=== PATIENT | male | born 1970 | race Hispanic/Latino ===

== ENCOUNTER 2017-06-29 10:26 | Inpatient (IN) | payer SELFPAY ==
[2017-06-29] MEDS ORDERED: NACL 0.9% 1000 ML 1,000 ML IV ONE ×4 (10:51→21:00)
[2017-06-29] MEDS ORDERED: MORPHINE IV ONE ×2 (10:58→12:27)
[2017-06-29] MEDS ORDERED: ZOFRAN IV ONE (10:58)
--- NOTE | 2017-06-29 10:59 | Emergency Department Report ---
ED Abdominal Pain HPI - General Chief Complaint: Abdominal Pain Stated Complaint: ABD PAIN X 2 DAY Time Seen by Provider: 06/29/17 10:50 Source: patient, EMS Mode of arrival: Ambulatory Limitations: No Limitations - History of Present Illness Initial Comments: History of bipolar patient is on a 1013 form for si, takes psych meds gabapentin , seroquel, xanax as well as protonix, ultram, from [facility] here with increasing abdominal pain for 2 days patient states he had a bowel obstruction in the past with a history of pancreatitis. She is stating increasing abdominal pain and distention with nausea vomiting. The emesis seems feculent. He denies any ability to have bowel movement for 4 days for eval worsening abd pain MD Complaint: abdominal pain -: Gradual Location: diffuse, epigastric Radiation: epigastric, back Migration to: no migration Quality: cramping Consistency: constant Improves With: medication Associated Symptoms: nausea, vomiting. denies: hematemesis, hematochezia, melena, hematuria, anorexia, syncope - Related Data Allergies Allergy/AdvReac Type Severity Reaction Status Date / Time aspirin Allergy Unknown Verified 06/29/17 10:37 ED Review of Systems ROS: Stated complaint: ABD PAIN X 2 DAY Other details as noted in HPI Comment: All other systems reviewed and negative Constitutional: denies: diaphoresis, fever, malaise, weakness Cardiovascular: denies: chest pain, palpitations, dyspnea on exertion, orthopnea , edema, syncope, paroxysmal nocturnal dyspnea Gastrointestinal: abdominal pain, nausea, vomiting. denies: hematemesis, hematochezia Musculoskeletal: denies: joint swelling, arthralgia, myalgia Neurological: denies: headache, weakness, numbness, paresthesias, confusion ED Past Medical Hx - Past Medical History Previous Medical History?: Yes Hx Hypertension: Yes Hx Psychiatric Treatment: Yes (bipolar) Additional medical history: pancreatitis - Social History Smoking Status: Never Smoker Substance Use Type: None ED Physical Exam - General Limitations: No Limitations General appearance: alert, anxious, in distress - Head Head exam: Present: atraumatic, normocephalic - Eye Eye exam: Present: PERRL, EOMI - ENT ENT exam: Present: normal exam - Neck Neck exam: Present: normal inspection. Absent: tenderness, meningismus - Respiratory Respiratory exam: Present: normal lung sounds bilaterally. Absent: respiratory distress, wheezes, rales, rhonchi, stridor, chest wall tenderness, accessory muscle use, decreased breath sounds, prolonged expiratory - Cardiovascular Cardiovascular Exam: Present: regular rate, normal rhythm, normal heart sounds - GI/Abdominal GI/Abdominal exam: Present: soft, tenderness. Absent: rigid, mass, pulsatile mass - Extremities Exam Extremities exam: Present: normal inspection. Absent: pedal edema, joint swelling, calf tenderness - Skin Skin exam: Absent: cyanosis, diaphoretic, erythema, urticaria, vesicles ED Course Vital Signs 06/29/17 06/29/17 06/29/17 10:49 11:00 11:30 Temperature 98.2 F Pulse Rate 75 74 73 Respiratory 15 13 14 Rate Blood Pressure 116/68 116/64 Blood Pressure 129/86 [Left] O2 Sat by Pulse 94 95 Oximetry 06/29/17 06/29/17 06/29/17 12:18 12:30 13:00 Temperature Pulse Rate 74 75 69 Respiratory 15 14 13 Rate Blood Pressure 116/64 116/64 116/64 Blood Pressure [Left] O2 Sat by Pulse Oximetry 06/29/17 06/29/17 06/29/17 14:00 14:30 15:00 Temperature Pulse Rate 65 64 Respiratory 17 21 Rate Blood Pressure 116/64 118/69 114/61 Blood Pressure [Left] O2 Sat by Pulse 96 95 92 Oximetry 06/29/17 06/29/17 15:30 15:41 Temperature Pulse Rate Respiratory 13 Rate Blood Pressure 106/60 Blood Pressure [Left] O2 Sat by Pulse 92 97 Oximetry - Reevaluation(s) Reevaluation #1: 06/29/17 16:25 Patient was given IV fluids and pain control laboratory studies and CT were ordered ED Medical Decision Making - Lab Data Result diagrams: 06/29/17 10:52 06/29/17 10:52 - Radiology Data Radiology results: report reviewed - Medical Decision Making Patient received several doses of morphine was also requesting Dilaudid he was improved in the ED w/ this, laboratory studies show nl lipase, elev alk phos. nl bili, , ct shows some mesenteric edema with intra-abdominal and pelvic adenopathy with possible compression on the portal vein case was discussed with Dr. Augustin who is race relations professor for hospitalist service who will further evaluate the patient for further managementand admission Critical care attestation.: If time is entered above; I have spent that time in minutes in the direct care of this critically ill patient, excluding procedure time. ED Disposition Clinical Impression: Abdominal pain Disposition: DC-09 OP ADMIT IP TO THIS HOSP Is pt being admited?: Yes Condition: Stable Referrals: PRIMARY CARE, [Primary Care Provider] - 3-5 Days Time of Disposition: 17:25
[2017-06-29 11:12] LABS: Basophils % (Auto) 0.3 % (0.0-1.8); Eosinophils # (Auto) 0.1 K/mm3 (0.0-0.4); Eosinophils % (Auto) 2.3 % (0.0-4.3); Hematocrit 34.2 % (35.5-45.6); Hemoglobin 11.1 gm/dl (11.8-15.2); Lymphocytes # (Auto) 1.2 K/mm3 (1.2-5.4); Lymphocytes % (Auto) 30.7 % (13.4-35.0); Mean Corpuscular HGB Conc 32 % (32-34); Mean Corpuscular Volume 80 fl (84-94); Monocytes # (Auto) 0.6 K/mm3 (0.0-0.8); Monocytes % (Auto) 15.3 % (0.0-7.3); Platelet Count 120 K/mm3 (140-440); Red Blood Count 4.28 M/mm3 (3.65-5.03); Red Cell Distribution Width 16.2 % (13.2-15.2)
[2017-06-29 11:13] LABS: Mean Corpuscular Hemoglobin 26 pg (28-32)
[2017-06-29 11:36] LABS: Alanine Aminotransferase 54 units/L (7-56); Albumin 3.6 g/dL (3.9-5); BUN/Creatinine Ratio 18; Blood Urea Nitrogen 16 mg/dL (9-20); Calcium 8.7 mg/dL (8.4-10.2); Hemolysis Index 58
--- NOTE | 2017-06-29 12:38 | Cat Scan Report ---
CT ABDOMEN PELVIS WITH CONTRAST: HISTORY: abdominal pain. COMPARISON: none. TECHNIQUE: Helical CT in 1.25mm intervals following IV contrast. Sagittal and coronal reconstructions. FINDINGS: There appears to be well-defined mesenteric edema near the base of the mesentery and pancreas. The mesentery appears to be tethered to the anterior surface of the body of the pancreas. Some images suggest mild desmoplastic reaction. There are multiple borderline to mildly enlarged lymph nodes in the montse hepatis, pancreatic bed and base of the mesentery measuring up to 2.9 x 1.7 cm. No discrete pancreatic mass or calcifications are identified. The gallbladder has been surgically removed. The liver is unremarkable. 1.9 cm cavernous angioma in the inferior tip of the liver is noted. There is mild to moderate splenomegaly measuring 17 cm. No ascites or varicosities. There does appear to be mild engorgement of the superior mesenteric vein. The portal vein is not confidently identified throughout its course and may be stenotic particularly near the splenic confluence. The kidneys, ureters, bladder, adrenal glands and aorta are unremarkable. The bowel loops are within normal limits given no oral contrast was administered. Normal appendix. No evidence for ascites or free air. The visualized bony structures are intact. The lung bases are well aerated. Normal heart size. IMPRESSION: Nonspecific edema at the base of the mesentery and near the pancreatic bed. There are also mildly enlarged lymph nodes in this area and possible compression or stenosis of the portal vein. The etiology of this is unclear. Consider correlation with pancreatic enzymes. Mild adenopathy in the montse hepatis, peripancreatic chains and base of the mesentery which could indicate a neoplastic process.
[2017-06-29] MEDS ORDERED: DILAUDID IV ONE (14:34)
[2017-06-29 17:50] LABS: Bilirubin,Urine NEG (Negative); Blood,Urine NEG (Negative); Color,Urine Straw (Yellow); Urobilinogen,Urine < 2.0 mg/dL (<2.0); WBC,Urine < 1.0 /HPF (0.0-6.0)
[2017-06-29 17:55] LABS: Protein,Urine Color Interference mg/dL (Negative)
[2017-06-29] MEDS ORDERED: NACL 0.9% 1000 ML 1,000 ML ONE (18:36)
[2017-06-29] MEDS ORDERED: TYLENOL PO PRN (18:58)
[2017-06-29] MEDS ORDERED: SODIUM CHLORIDE FLUSH SYRINGE 10 ML IV PRN (18:58)
[2017-06-29] MEDS ORDERED: PROVENTIL IH PRN (18:58)
[2017-06-29] MEDS ORDERED: ZOFRAN IV PRN (18:58)
--- NOTE | 2017-06-29 18:58 | History and Physical Report ---
History of Present Illness Chief complaint: My stomach hurts, and they told me that i needed surgery for the blockage History of present illness: 46 YO Male with MO, Bipolar, Chronic Pancreatitis, HTN presents to ED for evaluation. Pt currently at [place] on 1013 for suicide ideation. Pt states that he has experienced abdominal pain for the past 2 days with worsening symptoms over the past 12 hours. Pt states tht his last bowel movement was 4 days ago. Pt states that pain is 7/10, diffuse, starts in the epigastric area and radiates to his back. Pt also complains of feculent emesis. Pt denies fever, CP , Palpitations, Syncope, BRBPR, rash, productive cough, ingestion of food/water from new or different sources. 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 Surgery consulted in ED. Pt admitted to medical floor. Past History Past Medical History: hypertension, other (bipolar) Past Surgical History: No surgical history, Other (reviewed) Social history: single. denies: smoking, alcohol abuse, prescription drug abuse Family history: no significant family history (reviewed) Medications and Allergies Allergies Allergy/AdvReac Type Severity Reaction Status Date / Time aspirin Allergy Unknown Verified 06/29/17 10:37 Active Meds: Active Medications Sodium Chloride (Nacl 0.9% 1000 Ml) 1,000 mls @ 999 mls/hr IV BOLUS ONE Stop: 06/29/17 19:38 Last Admin: 06/29/17 18:44 Dose: 999 mls/hr Sodium Chloride (Nacl 0.9% 1000 Ml) 1,000 mls @ 999 mls/hr IV BOLUS ONE Stop: 06/29/17 21:00 Sodium Chloride (Nacl 0.9% 1000 Ml) 1,000 mls @ 999 mls/hr IV BOLUS ONE Stop: 06/29/17 22:00 Review of Systems Constitutional: no weight loss, no weight gain, no fever, no chills Ears, nose, mouth and throat: no ear pain, no ear discharge, no tinnitis, no decreased hearing, no nose pain, no nasal congestion Cardiovascular: no chest pain, no orthopnea, no palpitations, no rapid/ irregular heart beat, no edema, no syncope Respiratory: no cough, no cough with sputum, no excessive sputum, no hemoptysis , no shortness of breath Gastrointestinal: abdominal pain, nausea, vomiting, change in bowel habits, no hematemesis, no coffee ground emesis, no BRBPR, no melena Genitourinary Male: no hematuria, no flank pain, no discharge, no urinary frequency, no urinary hesitancy Rectal: no pain, no incontinence, no bleeding Musculoskeletal: no neck stiffness, no neck pain, no shooting arm pain, no arm numbness/tingling, no low back pain, no shooting leg pain, no leg numbness/ tingling Integumentary: no rash, no pruritis, no redness, no sores, no wounds, no jaundice Neurological: no head injury, no transient paralysis, no paralysis, no weakness , no parathesias, no numbness, no tingling, no seizures Psychiatric: no anxiety, no memory loss, no change in sleep habits, no sleep disturbances, no insomnia, no hypersomnia, no change in appetite Endocrine: no cold intolerance, no heat intolerance, no polyphagia, no excessive thirst, no polydipsia, no polyuria, no nocturia Hematologic/Lymphatic: no easy bruising, no easy bleeding, no lymphadenopathy, no lymphedema Allergic/Immunologic: no urticaria, no allergic rhinitis, no wheezing Exam - Constitutional Vitals: Temp Pulse Resp BP Pulse Ox 98.2 F 64 13 102/61 99 06/29/17 11:00 06/29/17 15:00 06/29/17 15:30 06/29/17 18:37 06/29/17 18:33 General appearance: Present: mild distress - EENT Eyes: Present: PERRL ENT: hearing intact, clear oral mucosa - Neck Neck: Present: supple, normal ROM - Respiratory Respiratory effort: normal Respiratory: bilateral: CTA - Cardiovascular Heart Sounds: Present: S1 & S2. Absent: rub, click - Extremities Extremities: pulses symmetrical, No edema Peripheral Pulses: within normal limits - Abdominal General gastrointestinal: Present: soft, tender, non-distended, normal bowel sounds. Absent: hepatomegaly, splenomegaly, mass, hernia Male genitourinary: Present: normal - Integumentary Integumentary: Present: clear, warm, dry - Musculoskeletal Musculoskeletal: gait normal, strength equal bilaterally - Psychiatric Psychiatric: appropriate mood/affect, intact judgment & insight - Neurologic Neurologic: CNII-XII intact, moves all extremities Results - Labs CBC & Chem 7: 06/29/17 10:52 06/29/17 10:52 Labs: Abnormal lab results 06/29/17 06/29/17 Range/Units 10:52 10:52 WBC 4.0 L (4.5-11.0) K/mm3 Hgb 11.1 L (11.8-15.2) gm/dl Hct 34.2 L (35.5-45.6) % MCV 80 L (84-94) fl MCH 26 L (28-32) pg RDW 16.2 H (13.2-15.2) % Plt Count 120 L (140-440) K/mm3 [place] % (Auto) 15.3 H (0.0-7.3) % Glucose 137 H (75-100) mg/dL AST 43 H (5-40) units/L Alkaline Phosphatase 344 H (35-129) units/L Albumin 3.6 L (3.9-5) g/dL Assessment and Plan - Patient Problems (1) Mesenteric ischemia Current Visit: Yes Status: Acute Plan to address problem: CT Abdomen Pelvis, Surgery team consulted, serial abdominal exam, lactic acid level, CBC, CMP, IVF resuscitation therapy (2) Bipolar 1 disorder Current Visit: Yes Status: Acute Plan to address problem: Psych consulted, [address], resume prehospital medication. (3) Suicide ideation Current Visit: Yes Status: Acute Plan to address problem: 1:1 sitter, psych consulted, (4) Abdominal pain Current Visit: Yes Status: Acute Qualifiers: Abdominal location: generalized Qualified Code(s): R10.84 - Generalized abdominal pain Plan to address problem: CT abdomen pelvis, serial lactic acid, serial abdominal exam. (5) DVT prophylaxis Current Visit: Yes Status: Acute
[2017-06-29] MEDS: SODIUM CHLORIDE FLUSH SYRINGE 10 ML IV SCH (22:00)
[2017-06-30] MEDS: MORPHINE IV PRN ×4 (00:01→12:23)
--- NOTE | 2017-06-30 06:52 | Progress Note ---
Assessment and Plan Assessment and plan: 46 YO Male with MO, Bipolar, Chronic Pancreatitis, HTN presents to ED for evaluation. Pt currently at [place] on 1013 for suicide ideation. Pt states that he has experienced abdominal pain for the past 2 days with worsening symptoms over the past 12 hours. Pt states tht his last bowel movement was 4 days ago. Pt states that pain is 7/10, diffuse, starts in the epigastric area and radiates to his back. Pt also complains of feculent emesis. Pt denies fever, CP , Palpitations, Syncope, BRBPR, rash, productive cough, ingestion of food/water from new or different sources. 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 Surgery consulted in ED. Pt admitted to medical floor. (1) Mesenteric edema Current Visit: Yes Status: Acute Plan to address problem: CT Abdomen Pelvis, Surgery team consulted, serial abdominal exam, lactic acid level, CBC, CMP, IVF resuscitation therapy (2) Bipolar 1 disorder Current Visit: Yes Status: Acute Plan to address problem: Psych consulted, [address], resume prehospital medication. (3) Suicide ideation Current Visit: Yes Status: Acute Plan to address problem: 1:1 sitter, psych consulted, (4) Abdominal pain Current Visit: Yes Status: Acute Qualifiers: Abdominal location: generalized Qualified Code(s): R10.84 - Generalized abdominal pain Plan to address problem: CT abdomen pelvis, serial lactic acid, serial abdominal exam. (5) DVT prophylaxis Current Visit: Yes Status: Acute Hospitalist Physical - Constitutional Vitals: Temp Pulse Resp BP Pulse Ox 98.3 F 63 18 128/79 98 06/29/17 21:31 06/29/17 21:31 06/29/17 21:31 06/29/17 21:31 06/29/17 22:05 General appearance: Present: mild distress Results - Labs CBC & Chem 7: 06/29/17 10:52 06/29/17 10:52 Labs: Laboratory Last Values WBC 4.0 K/mm3 (4.5-11.0) L 06/29/17 10:52 RBC 4.28 M/mm3 (3.65-5.03) 06/29/17 10:52 Hgb 11.1 gm/dl (11.8-15.2) L 06/29/17 10:52 Hct 34.2 % (35.5-45.6) L 06/29/17 10:52 MCV 80 fl (84-94) L 06/29/17 10:52 MCH 26 pg (28-32) L 06/29/17 10:52 MCHC 32 % (32-34) 06/29/17 10:52 RDW 16.2 % (13.2-15.2) H 06/29/17 10:52 Plt Count 120 K/mm3 (140-440) L 06/29/17 10:52 Lymph % (Auto) 30.7 % (13.4-35.0) 06/29/17 10:52 [place] % (Auto) 15.3 % (0.0-7.3) H 06/29/17 10:52 Eos % (Auto) 2.3 % (0.0-4.3) 06/29/17 10:52 Baso % (Auto) 0.3 % (0.0-1.8) 06/29/17 10:52 Lymph # 1.2 K/mm3 (1.2-5.4) 06/29/17 10:52 Alexander # 0.6 K/mm3 (0.0-0.8) 06/29/17 10:52 Eos # 0.1 K/mm3 (0.0-0.4) 06/29/17 10:52 Baso # 0.0 K/mm3 (0.0-0.1) 06/29/17 10:52 Seg Neutrophils % 51.4 % (40.0-70.0) 06/29/17 10:52 Seg Neutrophils # 2.0 K/mm3 (1.8-7.7) 06/29/17 10:52 Sodium 137 mmol/L (137-145) 06/29/17 10:52 Potassium 4.5 mmol/L (3.6-5.0) 06/29/17 10:52 Chloride 99.0 mmol/L (98-107) 06/29/17 10:52 Carbon Dioxide 27 mmol/L (22-30) 06/29/17 10:52 Anion Gap 16 mmol/L 06/29/17 10:52 BUN 16 mg/dL (9-20) 06/29/17 10:52 Creatinine 0.9 mg/dL (0.8-1.5) 06/29/17 10:52 Estimated GFR > 60 ml/min 06/29/17 10:52 BUN/Creatinine Ratio 18 % 06/29/17 10:52 Glucose 137 mg/dL (75-100) H 06/29/17 10:52 Lactic Acid 0.80 mmol/L (0.7-2.0) 06/29/17 19:14 Calcium 8.7 mg/dL (8.4-10.2) 06/29/17 10:52 Total Bilirubin 0.20 mg/dL (0.1-1.2) 06/29/17 10:52 AST 43 units/L (5-40) H 06/29/17 10:52 ALT 54 units/L (7-56) 06/29/17 10:52 Alkaline Phosphatase 344 units/L (35-129) H 06/29/17 10:52 Total Protein 6.5 g/dL (6.3-8.2) 06/29/17 10:52 Albumin 3.6 g/dL (3.9-5) L 06/29/17 10:52 Albumin/Globulin Ratio 1.2 % 06/29/17 10:52 Lipase 13 units/L (13-60) 06/29/17 10:52 Urine Color Straw (Yellow) 06/29/17 17:40 Urine Turbidity Clear (Clear) 06/29/17 17:40 Urine pH 6.0 (5.0-7.0) 06/29/17 17:40 Ur Specific [place] 1.021 (1.003-1.030) 06/29/17 17:40 Urine Protein Color interference mg/dL (Negative) 06/29/17 17:40 Urine Glucose (UA) Neg mg/dL (Negative) 06/29/17 17:40 Urine Ketones Neg mg/dL (Negative) 06/29/17 17:40 Urine Blood Neg (Negative) 06/29/17 17:40 Urine Nitrite Neg (Negative) 06/29/17 17:40 Urine Bilirubin Neg (Negative) 06/29/17 17:40 Urine Urobilinogen < 2.0 mg/dL (<2.0) 06/29/17 17:40 Ur Leukocyte Esterase Neg (Negative) 06/29/17 17:40 Urine WBC (Auto) < 1.0 /HPF (0.0-6.0) 06/29/17 17:40 Urine RBC (Auto) 1.0 /HPF (0.0-6.0) 06/29/17 17:40
--- NOTE | 2017-06-30 08:47 | XRay Report ---
ABDOMEN, 2 views: History: Abdominal pain. Compared to the CT abdomen pelvis dated 06/29/17. There is no evidence of free air beneath the diaphragms. The gas pattern within the abdomen is unremarkable. There is no evidence of bowel dilatation, significant air-fluid levels, or pathologic calcifications. Organ shadows are unremarkable. IMPRESSION: Unremarkable abdomen x-rays.
[2017-06-30] MEDS: SODIUM CHLORIDE FLUSH SYRINGE 10 ML IV SCH ×2 (09:54→22:02)
--- NOTE | 2017-06-30 11:49 | Cat Scan Report ---
CT ANGIOGRAM ABDOMEN AND PELVIS History: Abdominal pain, mesenteric edema, evaluate for ischemic bowel. Technique: Helical CT following IV contrast. Delayed venous imaging. Sagittal and coronal reformatted images. Rotational MIP images. Findings: The arterial images demonstrate patency of all arterial structures. There are mild partially calcified plaques in the distal aorta with less than 20% stenosis. The celiac axis, SMA, BRUNILDA and bilateral single renal arteries are patent less than 20% stenosis. The bilateral iliac systems are patent with less than 20% stenosis. No aneurysm or dissection. The delayed venous images demonstrate high grade stenosis of the distal portal vein near the splenic confluence. Stenosis in the distal portal vein is estimated at greater than 90%. There does not appear to be complete occlusion or portal vein thrombosis. There are multiple collateral vessels in the montse hepatis consistent with cavernous transformation. The splenic vein and superior mesenteric vein are dilated and tortuous. Gastric varices are also noted. The IVC and iliac veins are widely patent. Please note that there is no portal venous and peripancreatic adenopathy as thought on the CT abdomen pelvis with contrast on 06/29/17. These dilated veins appeared to represent enlarged lymph nodes on a standard CT with contrast. Again, there appears to be scarring or tethering of the mesentery to the pancreatic bed or base of the mesentery which is of uncertain etiology. The descending duodenum also appears to be tethered to the scarring in this area resulting in mild gastric outlet obstruction. I cannot completely exclude a neoplastic process although no large visceral mass or adenopathy appreciated. The remainder the exam is unchanged since 06/29/17. IMPRESSION: Essentially normal CT a of the abdomen and pelvis. There is no evidence for ischemic bowel. CTV of the abdomen is abnormal with high grade stenosis of the distal portal vein/portal confluence with multiple collateral vessels as described above. No convincing complete occlusion or portal vein thrombosis.
--- NOTE | 2017-06-30 12:30 | Progress Note ---
Assessment and Plan Full consult dictated Chief complaint: My stomach hurts, and they told me that i needed surgery for the blockage History of present illness: 46 YO Male with MO, Bipolar, Chronic Pancreatitis, HTN presents to ED for evaluation. Pt currently at [place] on 1013 for suicide ideation. Pt states that he has experienced abdominal pain for the past 2 days with worsening symptoms over the past 12 hours. Pt states tht his last bowel movement was 4 days ago. Pt states that pain is 7/10, diffuse, starts in the epigastric area and radiates to his back. Pt also complains of feculent emesis. Pt denies fever, CP , Palpitations, Syncope, BRBPR, rash, productive cough, ingestion of food/water from new or different sources. 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 Surgery consulted in ED. Pt admitted to medical floor. Bipolar pt c/o N&V. epig abd pain Abd soft. localized epig tenderness CT abd - some sort of desmoplastic reaction or mass noted at the head of the pancreas region. This mass appears to be extrinsically compressing on the duodenum causing a semblance of gastric outlet obst. also possibly causing extrinsic compress and stasis in the region of the splenic veins, smv confluence imp as above. rec keep npo except for ice chip and meds. IVF pt will need to be transferred to institution that performs pancreatic surg ( [place], [facility] etc) Selected Entries 06/30/17 07:51 Temperature 98.7 F Pulse Rate 64 Respiratory 20 Rate Blood Pressure 120/70 Laboratory Tests 06/29/17 06/29/17 06/29/17 10:52 10:52 10:52 WBC 4.0 L Hgb 11.1 L Hct 34.2 L Sodium 137 Potassium 4.5 Chloride 99.0 Carbon Dioxide 27 BUN 16 Creatinine 0.9 Total Bilirubin 0.20 AST 43 H ALT 54 Alkaline Phosphatase 344 H Total Protein 6.5 Albumin 3.6 L Lipase 13 Objective Vital Signs - 12hr 06/30/17 07:51 Temperature 98.7 F Pulse Rate 64 Respiratory 20 Rate Blood Pressure 120/70 O2 Sat by Pulse 93 Oximetry - Labs 06/29/17 10:52 06/29/17 10:52
[2017-06-30] MEDS ORDERED: NON-FORMULARY (Tramadol 50 MG) PO PRN (14:44)
[2017-06-30] MEDS ORDERED: XANAX 2 MG PO SCH (14:45)
[2017-06-30] MEDS ORDERED: DILAUDID IM PRN (14:45)
[2017-06-30] MEDS ORDERED: NORCO 10/325 PO PRN (14:46)
[2017-06-30] MEDS ORDERED: ULTRAM PO PRN (15:03)
[2017-06-30] MEDS: DILAUDID IV PRN ×2 (16:00→20:12)
[2017-06-30] MEDS ORDERED: GABAPENTIN PO SCH (20:00)
--- NOTE | 2017-06-30 20:54 | Consultation ---
REASON FOR CONSULTATION: Epigastric abdominal pain accompanied by nausea and vomiting. HISTORY OF PRESENT ILLNESS: The patient is a 46-year-old bipolar gentleman with a supposed history of ". At this time, the patient is transferred from [place] on 01/31/2017. He is complaining of abdominal pain, nausea and vomiting. For the past history please review chart. PHYSICAL EXAMINATION: GENERAL: At this time reveals the patient to be awake, alert, cooperative, in no acute distress. VITAL SIGNS: Temperature 98.7, blood pressure 120/70, pulse is 64, respirations of 20. ABDOMEN: Reveals to be moderately obese and soft. There is; however, localized epigastric tenderness with mild guarding, no rebound. Bowel sounds are present. LABORATORY DATA: Lab work at present includes a CBC which shows a white count of 4, H and H is 11.1 and 34.2. Electrolytes are essentially within normal limits. Glucose is 137. LFTs show a total bilirubin of 0.2, AST is 43, ALT 54, alkaline phosphatase is slightly elevated at 344. Lipase is normal at 13. IMAGING DATA: CT scan of the abdomen has been performed as well as CTA, which I have reviewed with Dr. Cummings, the radiologist. There appears to be some sort of desmoplastic reaction or mass noted at the head of the pancreas region. This mass appears to be extrinsically compressing the duodenum causing a semblance of gastric outlet obstruction. Also, possibly causing extrinsic compression and stasis in the region of the splenic vein, thus causing some thrombotic occlusion at the region of the splenic vein as superior mesenteric vein confluence. IMPRESSION: At this time is as above. RECOMMENDATION: At this time is to keep the patient n.p.o. except for ice chips and his p.o. meds. The patient will need to be transferred to an institution that performs pancreatic surgery ([place], [facility], [facility], etc). Thank you very much for consultation. JOB# [id number] NEREIDA/MARGO
[2017-06-30] MEDS ORDERED: SEROQUEL 300 MG PO SCH (22:00)
[2017-06-30] MEDS: XANAX PO SCH (22:00)
[2017-06-30] MEDS: NEURONTIN PO SCH (22:00)
[2017-07-01] MEDS: DILAUDID IV PRN ×5 (00:28→17:00)
[2017-07-01] MEDS ORDERED: NEURONTIN PO SCH (08:00)
[2017-07-01] MEDS: NEURONTIN PO SCH ×2 (08:01→13:29)
[2017-07-01] MEDS ORDERED: NON-FORMULARY (Protonix Tab 40 MG) PO SCH (10:00)
[2017-07-01] MEDS ORDERED: PROTONIX PO SCH (10:00)
[2017-07-01] MEDS: XANAX PO SCH (11:00)
[2017-07-01] MEDS: SODIUM CHLORIDE FLUSH SYRINGE 10 ML IV SCH (11:00)
--- NOTE | 2017-07-01 12:57 | Progress Note ---
Assessment and Plan Assessment and plan: 46-year-old -Fijian male with past medical history significant for pancreatitis was transferred from psych facility after he was complaining of abdominal pain. She was admitted to psych facility for suicidal ideation Abdominal pain - CAT scan showed mesenteric and pancreatic edema - Surgery have evaluated and said the patient has pancreatic mass, with possible compression of the duodenum and causing gastric outlet obstruction - Surgery recommended to transfer to the facility for pancreatic surgery, I have called [facility] and [facility], waiting for call back, called [facility] and no bed - Patient is nothing by mouth except ice chips and meds, per general surgery - Pain control Suicidal ideation - Patient admitted on 1012 - Patient is on one-to-one - Mental health consulted DVT prophylaxis Disposition - Possible transfer to either [facility] or [facility] when they call me back. History Interval history: Patient was seen and evaluated this morning, he is complaining that he is hungry , he wants to eat. He is nothing by mouth except ice chips and medications. Hospitalist Physical - Physical exam Narrative exam: Not in cardiopulmonary distress. The patient appeared well nourished and normally developed. Vital signs as documented. Head exam is unremarkable. No scleral icterus . Neck is without jugular venous distension, thyromegaly, or carotid bruits. Lungs are clear to auscultation. Cardiac exam reveals regular rate and Rhythm. First and second heart sounds normal. No murmurs, rubs or gallops. Abdominal exam reveals mild to moderate generalized tenderness, no guarding or rigidity. Extremities are nonedematous and both femoral and pedal pulses are normal. EVENING SITTER: Alert and oriented 3. No focal weakness. Psych: Patient has suicidal ideation. - Constitutional Vitals: Temp Pulse Resp BP Pulse Ox 97.7 F 76 18 100/63 95 07/01/17 07:47 07/01/17 07:47 07/01/17 07:47 07/01/17 07:47 07/01/17 07:47 General appearance: Present: mild distress Results - Labs CBC & Chem 7: 06/29/17 10:52 06/29/17 10:52 Labs: Laboratory Last Values WBC 4.0 K/mm3 (4.5-11.0) L 06/29/17 10:52 RBC 4.28 M/mm3 (3.65-5.03) 06/29/17 10:52 Hgb 11.1 gm/dl (11.8-15.2) L 06/29/17 10:52 Hct 34.2 % (35.5-45.6) L 06/29/17 10:52 MCV 80 fl (84-94) L 06/29/17 10:52 MCH 26 pg (28-32) L 06/29/17 10:52 MCHC 32 % (32-34) 06/29/17 10:52 RDW 16.2 % (13.2-15.2) H 06/29/17 10:52 Plt Count 120 K/mm3 (140-440) L 06/29/17 10:52 Lymph % (Auto) 30.7 % (13.4-35.0) 06/29/17 10:52 Addison % (Auto) 15.3 % (0.0-7.3) H 06/29/17 10:52 Eos % (Auto) 2.3 % (0.0-4.3) 06/29/17 10:52 Baso % (Auto) 0.3 % (0.0-1.8) 06/29/17 10:52 Lymph # 1.2 K/mm3 (1.2-5.4) 06/29/17 10:52 Addison # 0.6 K/mm3 (0.0-0.8) 06/29/17 10:52 Eos # 0.1 K/mm3 (0.0-0.4) 06/29/17 10:52 Baso # 0.0 K/mm3 (0.0-0.1) 06/29/17 10:52 Seg Neutrophils % 51.4 % (40.0-70.0) 06/29/17 10:52 Seg Neutrophils # 2.0 K/mm3 (1.8-7.7) 06/29/17 10:52 Sodium 137 mmol/L (137-145) 06/29/17 10:52 Potassium 4.5 mmol/L (3.6-5.0) 06/29/17 10:52 Chloride 99.0 mmol/L (98-107) 06/29/17 10:52 Carbon Dioxide 27 mmol/L (22-30) 06/29/17 10:52 Anion Gap 16 mmol/L 06/29/17 10:52 BUN 16 mg/dL (9-20) 06/29/17 10:52 Creatinine 0.9 mg/dL (0.8-1.5) 06/29/17 10:52 Estimated GFR > 60 ml/min 06/29/17 10:52 BUN/Creatinine Ratio 18 % 06/29/17 10:52 Glucose 137 mg/dL (75-100) H 06/29/17 10:52 Lactic Acid 0.80 mmol/L (0.7-2.0) 06/30/17 06:51 Calcium 8.7 mg/dL (8.4-10.2) 06/29/17 10:52 Total Bilirubin 0.20 mg/dL (0.1-1.2) 06/29/17 10:52 AST 43 units/L (5-40) H 06/29/17 10:52 ALT 54 units/L (7-56) 06/29/17 10:52 Alkaline Phosphatase 344 units/L (35-129) H 06/29/17 10:52 Total Protein 6.5 g/dL (6.3-8.2) 06/29/17 10:52 Albumin 3.6 g/dL (3.9-5) L 06/29/17 10:52 Albumin/Globulin Ratio 1.2 % 06/29/17 10:52 Lipase 13 units/L (13-60) 06/29/17 10:52 Urine Color Straw (Yellow) 06/29/17 17:40 Urine Turbidity Clear (Clear) 06/29/17 17:40 Urine pH 6.0 (5.0-7.0) 06/29/17 17:40 Ur Specific [place] 1.021 (1.003-1.030) 06/29/17 17:40 Urine Protein Color interference mg/dL (Negative) 06/29/17 17:40 Urine Glucose (UA) Neg mg/dL (Negative) 06/29/17 17:40 Urine Ketones Neg mg/dL (Negative) 06/29/17 17:40 Urine Blood Neg (Negative) 06/29/17 17:40 Urine Nitrite Neg (Negative) 06/29/17 17:40 Urine Bilirubin Neg (Negative) 06/29/17 17:40 Urine Urobilinogen < 2.0 mg/dL (<2.0) 06/29/17 17:40 Ur Leukocyte Esterase Neg (Negative) 06/29/17 17:40 Urine WBC (Auto) < 1.0 /HPF (0.0-6.0) 06/29/17 17:40 Urine RBC (Auto) 1.0 /HPF (0.0-6.0) 06/29/17 17:40
--- NOTE | 2017-07-01 14:19 | Progress Note ---
Assessment and Plan Pt status quo. hungry. insists on something to drink Abd soft, not distended spoke to surg at [facility] who will accept pt on transfer. may have some ice chips and popsicles as natasha stable await transfer Selected Entries 07/01/17 07:47 Temperature 97.7 F Pulse Rate 76 Respiratory 18 Rate Blood Pressure 100/63 Laboratory Tests 06/29/17 10:52 WBC 4.0 L Hgb 11.1 L Hct 34.2 L Objective Vital Signs - 12hr 07/01/17 07/01/17 07/01/17 04:05 04:22 04:52 Temperature 97.9 F Pulse Rate 68 Respiratory 16 17 17 Rate Blood Pressure 109/73 O2 Sat by Pulse 96 Oximetry 07/01/17 07:47 Temperature 97.7 F Pulse Rate 76 Respiratory 18 Rate Blood Pressure 100/63 O2 Sat by Pulse 95 Oximetry - Labs 06/29/17 10:52 06/29/17 10:52
--- NOTE | 2017-07-01 15:07 | Discharge Summary ---
Providers - Providers Date of Admission: 06/29/17 18:58 Date of discharge: 07/01/17 Attending physician: KALLIE GARY MD 06/29/17 18:06 Consult to Physician [CONS] Routine Consulting Provider: ERLINDA SAHNI Reason For Exam: abdominal pain, SMV engorgement? Thrombosis Place consult to:: brody Notified:: y Was contact made?: Yes If yes, spoke with:: anthony Time called:: 20:46 Primary care physician: VISUAL SUPERVISOR Hospitalization Reason for admission: abdominal pain Condition: Stable Pertinent studies: CT showed swelling of mesentery and pancreas. Hospital course: 46-year-old male was transferred from [facility] because of complaints of abdominal pain that has been getting progressively worse over 2 days. Patient is admitted to psych facility for suicidal ideation. Patient had history of pancreatitis. In the emergency department CT abdomen was done and shows that swelling of the mesentery and part of the pancreas. Per surgeon there is a mass in the pancreas was compression of the duodenum causing gastric outlet obstruction and recommended to transfer to our facility. Patient is nothing by mouth, IV fluid and pain control. Patient was suicidal while inpatient and he was on 1013. Patient was accepted by [facility] and transferred. patient was hemodynamically stable at the time of discharge. Disposition: DC/TX-70 ANOTHER TYPE THCARE Time spent for discharge: 31 minutes - Discharge Diagnoses (1) Pancreatic mass Status: Acute (2) Abdominal pain Status: Acute Qualifiers: Abdominal location: generalized Qualified Code(s): R10.84 - Generalized abdominal pain (3) Bipolar 1 disorder Status: Acute (4) Suicide ideation Status: Acute Core Measure Documentation - Palliative Care Palliative Care/ Comfort Measures: Not Applicable - Core Measures Any of the following diagnoses?: none Exam - Physical Exam Narrative exam: Not in cardiopulmonary distress. The patient appeared well nourished and normally developed. Vital signs as documented. Head exam is unremarkable. No scleral icterus . Neck is without jugular venous distension, thyromegaly, or carotid bruits. Lungs are clear to auscultation. Cardiac exam reveals regular rate and Rhythm. First and second heart sounds normal. No murmurs, rubs or gallops. Abdominal exam reveals mild to moderate generalized tenderness, no guarding or rigidity. Extremities are nonedematous and both femoral and pedal pulses are normal. PER DIEM NURSE: Alert and oriented 3. No focal weakness. Psych: Patient has suicidal ideation. - Constitutional Vitals: Temp Pulse Resp BP Pulse Ox 97.7 F 76 18 100/63 95 07/01/17 07:47 07/01/17 07:47 07/01/17 07:47 07/01/17 07:47 07/01/17 07:47 Plan Activity: no restrictions Weight Bearing Status: Full Weight Bearing Diet: low fat Additional Instructions: patient will be transferred to [place]. Follow up with: PRIMARY CAREMD [Primary Care Provider] - 3-5 Days
[2017-07-01 16:10] VITALS: BP 96/65
== END 2017-07-01 20:00 | disposition short-term general hospital (02) | DRG 438 ==
LOC: ED 10:26 → 3A 18:58
PROVIDERS: ADMIT Internal Medicine; ATTEND Internal Medicine
DX: K86.89 Other specified diseases of pancreas (principal); K55.059 Acute (reversible) ischemia of intestine, part and extent unspecified; R10.9 Unspecified abdominal pain; Z88.6 Allergy status to analgesic agent; F31.9 Bipolar disorder, unspecified; I10 Essential (primary) hypertension
CPT/HCPCS: 36415; 74019; 74174; 74177; 80053; 81001; 82140; 83690; 85025; 96374; 96375; J1170; J2270; J2405; J7030; Q9967

== ENCOUNTER 2019-07-19 23:38 | Emergency (ER) | payer SELFPAY ==
--- NOTE | 2019-07-20 03:17 | XRay Report ---
LEFT KNEE 3 VIEWS INDICATION / CLINICAL INFORMATION: Fall on left knee. COMPARISON: None available. FINDINGS: Moderate medial joint space narrowing. No other significant skeletal abnormality Signer Name: Moses Mike MD FACRenaldo Signed: 07/20/2019 3:12 AM Workstation Name: [id number]
--- NOTE | 2019-07-20 04:09 | Emergency Department Report ---
Upper Extremity - [facility] Chief Complaint: Extremity Injury, Lower Stated Complaint: LT KNEE PAIN Time Seen by Provider: 07/20/19 03:37 ED Review of Systems ROS: Stated complaint: LT KNEE PAIN Other details as noted in HPI ED Past Medical Hx - Past Medical History Previous Medical History?: Yes Hx Hypertension: Yes Hx Congestive Heart Failure: No Hx Diabetes: No Hx Seizures: Yes (one time seizure not on seizure meds) Hx Psychiatric Treatment: Yes (bipolar) Hx Asthma: No Hx COPD: No Hx HIV: No Additional medical history: pancreatitis - Surgical History Past Surgical History?: Yes Hx Cholecystectomy: Yes - Social History Smoking Status: Never Smoker - Medications Home Medications: Home Medications Medication Instructions Recorded Confirmed Last Taken Type Gabapentin [Neurontin] 1 tab PO TID 06/29/17 06/29/17 Unknown History Protonix TAB 40 mg PO QAM 06/30/17 06/30/17 Unknown History SEROquel 300 mg PO QHS 06/30/17 06/30/17 Unknown History Xanax TAB 2 mg PO BID 06/30/17 06/30/17 Unknown History traMADol 50 mg PO QID PRN 06/30/17 06/30/17 Unknown History Upper Extremity Exam - Exam General: Vital signs noted. No distress. Alert and acting appropriately. ED Course Vital Signs 07/20/19 01:24 Temperature 98.3 F Pulse Rate 79 Respiratory 18 Rate Blood Pressure 166/101 O2 Sat by Pulse 96 Oximetry Critical care attestation.: If time is entered above; I have spent that time in minutes in the direct care of this critically ill patient, excluding procedure time. ED Disposition Condition: Stable Referrals: PRIMARY CARE, [Primary Care Provider] - 3-5 Days
[2019-07-20] MEDS ORDERED: IBUPROFEN 800 MG TAB PO ONE (04:14)
--- NOTE | 2019-07-20 04:18 | Emergency Department Report ---
HPI - General Chief Complaint: Extremity Injury, Lower Time Seen by Provider: 07/20/19 03:37 - HPI HPI: This is a 48-year-old male here reports that he was brought by EMS after falling at work. He said he hit his left knee. Reports left knee pain 9/10 achy worse with movement better with rest. Denies taking any medication. He said he is unable to place weight on knee. Pain is constant. 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) - Medications Home Medications: Home Medications Medication Instructions Recorded Confirmed Last Taken Type Gabapentin [Neurontin] 1 tab PO TID 06/29/17 06/29/17 Unknown History Protonix TAB 40 mg PO QAM 06/30/17 06/30/17 Unknown History SEROquel 300 mg PO QHS 06/30/17 06/30/17 Unknown History Xanax TAB 2 mg PO BID 06/30/17 06/30/17 Unknown History traMADol 50 mg PO QID PRN 06/30/17 06/30/17 Unknown History Ibuprofen [Motrin] 800 mg PO Q8HR PRN #12 tablet 07/20/19 Unknown Rx ED Review of Systems ROS: Stated complaint: LT KNEE PAIN Other details as noted in HPI Constitutional: denies: chills, fever ENT: denies: ear pain, throat pain Respiratory: denies: cough, shortness of breath, wheezing Cardiovascular: denies: chest pain, palpitations, dyspnea on exertion, edema Gastrointestinal: denies: abdominal pain, nausea, vomiting Genitourinary: denies: dysuria, hematuria Musculoskeletal: arthralgia. denies: back pain, joint swelling, myalgia Skin: denies: rash Neurological: denies: headache, numbness, paresthesias Physical Exam - Physical Exam Vital Signs: Vital Signs 07/20/19 01:24 Temperature 98.3 F Pulse Rate 79 Respiratory 18 Rate Blood Pressure 166/101 O2 Sat by Pulse 96 Oximetry General: This is a 48-year-old male here well-nourished well-developed in no acute distress Physical Exam: Head: Normocephalic atraumatic. Mouth: Oral mucosa moist, tongue is normal, uvula is midline, no VP PURCHASING or drooling, oral airways patent and uvula is Lungs: Clear to auscultated bilaterally, no rhonchi wheezes or rales. No use of accessory muscles. Neck: Supple, no tracheal deviation. No C-spine tenderness and full range of motion. CV: S1, S2. Regular rate Abdomen: Nontender to palpate in all quadrants, normal bowel sounds in all quadrants. No distention. Eyes: Bilateral pupils equal and reactive to light, conjunctival injection or icterus. Bilateral EOM intact and normal accommodation. Lids are normal. No swelling noted. Skin: Clean dry and intact and no rash or lesions. Extremity: No cce. + 2 pulses in all extremities, no neurovascular compromise. Left knee tender to palpate with full flexion and extension but reports pain with flexion and extension. No signs of ligamentous injury Mood: Normal mood and behavior Neurological: No focal neurological deficit. She is able to ambulate with minimal limp. Normal gait, speech is clear fluid, she is alert and oriented 3, no motor or sensory deficits. Normal strength all extremities and normal reflexes. Negative Romberg and negative pronator drift Back: Nontender to palpate to vertebral spine from C-spine to L-spine including sacral area. No paraspinal tenderness and no CVA tenderness. No rash noted. ED Course Vital Signs 07/20/19 01:24 Temperature 98.3 F Pulse Rate 79 Respiratory 18 Rate Blood Pressure 166/101 O2 Sat by Pulse 96 Oximetry - Reevaluation(s) Reevaluation #1: 07/20/19 04:18 Patient received Motrin 800 mg p.o. in emergency room for left knee pain. Please see procedure note for details and splinting - Orthopedic Splinting/Casting Injury #1 Side: left Lower Extremity Injury Location: knee Lower Extremity Immobilizer: Patricio wrap ED Medical Decision Making - Radiology Data Radiology results: report reviewed X-ray left knee dictated by radiologist and report reviewed by myself. Print Report Referring Physician:ELGIN RUSHPatient Name:MEG MICHELPatient ID:[id number] of :[id number]:MaleAccession:[id number] Date:[id number] Status:Finalized Findings [facility] [address] [facility], [place] [address] XRay Report Signed Patient: MEG MICHEL MR#: [id number] : 1970 Acct:[id number] Age/Sex: 48 / M ADM Date: 07/19/19 Loc: ED Attending Dr: Ordering Physician: BLAISE WHITE Date of Service: 07/20/19 Procedure(s): XR knee 3V LT Accession Number(s): [id number] cc: BLAISE WHITE Fluoro Time In Minutes: LEFT KNEE 3 VIEWS INDICATION / CLINICAL INFORMATION: Fall on left knee. COMPARISON: None available. FINDINGS: Moderate medial joint space narrowing. No other significant skeletal abnormality Signer Name: Moses Mike MD FACR Signed: 07/20/2019 3:12 AM Workstation Name: [id number] Transcribed By: MS Dictated By: Moses Mike MD Electronically Authenticated By: Moses Mike MD Signed Date/Time: 07/20/19311 DD/ 1 TD/TT: - Medical Decision Making This is a 48-year-old male status post fall found to have DJD of left knee with knee strain after falling. X-ray shows degenerative joint disease without any acute findings. Patient received Motrin 800 mg emergency room. He is stable in no acute distress and discharged from ED in stable condition with prescription for Motrin and to follow-up with orthopedic doctor in 1 to 2 days. Please see procedure note for splinting. - Differential Diagnosis Fracture VS dislocation, DJD, sprain, strain, MSK pain, Critical care attestation.: If time is entered above; I have spent that time in minutes in the direct care of this critically ill patient, excluding procedure time. ED Disposition Clinical Impression: Knee pain, left anterior DJD (degenerative joint disease) of knee Qualifiers: Osteoarthritis type: unspecified Laterality: left Qualified Code(s): M17.12 - Unilateral primary osteoarthritis, left knee Accidental fall Qualifiers: Encounter type: initial encounter Qualified Code(s): W19.XXXA - Unspecified fall, initial encounter Disposition: DC-01 TO HOME OR SELFCARE Is pt being admited?: No Does the pt Need Aspirin: No Condition: Stable Instructions: Osteoarthritis (ED), Knee Pain (ED), Arthralgia (ED), Knee Exercises (GEN) Additional Instructions: Please follow-up with orthopedic doctor in 2 to 3 days Rest knee for at least 3 days. See discharge instruction on rice therapy Take Motrin for pain but please take this medication with food as it can cause irritation to stomach lining If condition worsens, return to the emergency room Prescriptions: Ibuprofen [Motrin] 800 mg PO Q8HR PRN #12 tablet PRN Reason: pain Referrals: PRIMARY CARE, [Primary Care Provider] - 2-3 Days INDU LARIOS MD [Staff Physician] - 3-5 Days
[2019-07-20 04:57] VITALS: BP 162/94
== END 2019-07-20 05:00 | disposition home or self-care (01) ==
LOC: ED 23:38
DX: M17.12 Unilateral primary osteoarthritis, left knee (principal); W19.XXXA Unspecified fall, initial encounter; Y93.89 Activity, other specified; Y92.89 Other specified places as the place of occurrence of the external cause; Y99.8 Other external cause status

== ENCOUNTER 2020-02-09 15:40 | Emergency (ER) | payer SELFPAY ==
[2020-02-09 15:48] VITALS: BP 106/57
[2020-02-09 16:15] LABS: Basophils % (Auto) 0.3 % (0.0-1.8); Eosinophils # (Auto) 0.1 K/mm3 (0.0-0.4); Eosinophils % (Auto) 1.9 % (0.0-4.3); Hematocrit 32.5 % (35.5-45.6); Hemoglobin 10.8 gm/dl (11.8-15.2); Lymphocytes # (Auto) 1.3 K/mm3 (1.2-5.4); Lymphocytes % (Auto) 23.8 % (13.4-35.0); Mean Corpuscular HGB Conc 33 % (32-34); Mean Corpuscular Volume 76 fl (84-94); Monocytes # (Auto) 0.5 K/mm3 (0.0-0.8); Monocytes % (Auto) 9.6 % (0.0-7.3); Platelet Count 151 K/mm3 (140-440); Red Blood Count 4.31 M/mm3 (3.65-5.03); Red Cell Distribution Width 18.2 % (13.2-15.2)
[2020-02-09 16:30] LABS: Alanine Aminotransferase 68 units/L (7-56); Albumin 4.2 g/dL (3.9-5); BUN/Creatinine Ratio 19; Blood Urea Nitrogen 19 mg/dL (9-20); Calcium 9.2 mg/dL (8.4-10.2); Hemolysis Index 2
[2020-02-09] MEDS ORDERED: ONDANSETRON 4 MG/2 ML INJ IV ONE (21:04)
[2020-02-09] MEDS ORDERED: HYDROmorphone 1 MG/1 ML INJ IV ONE ×2 (21:04→22:41)
[2020-02-09] MEDS ORDERED: FAMOTIDINE 20 MG/2 ML INJ IV ONE (21:04)
[2020-02-09] MEDS ORDERED: SODIUM CHLORIDE 0.9% 1000 ML 1,000 ML IV ONE (21:04)
--- NOTE | 2020-02-09 21:08 | Emergency Department Report ---
ED Abdominal Pain HPI - General Chief Complaint: Abdominal Pain Stated Complaint: ABD PAIN Time Seen by Provider: 02/09/20 20:58 Source: patient, old records reviewed Mode of arrival: Wheelchair Limitations: No Limitations - History of Present Illness Initial Comments: 49-year old male with a past medical history of pancreatitis but denies previous alcohol abuse, hypertension, bipolar disorder, and previous cholecystectomy presents to the hospital complaining of constipation and pain typical of pancreatitis. Patient has had constipation for the past 4 days but did have a bowel movement while waiting in the waiting room to be evaluated. Patient said to have epigastric abdominal pain that described as a constant dull pain radiating to the back since this morning with associated nausea. Patient denies vomiting. He states symptoms are typical of pancreatitis. Does not drink alcohol. As per medical record review patient has history of chronic SMA occlusion and had a CT here in December 2019. - Related Data Home Medications Medication Instructions Recorded Confirmed Last Taken Gabapentin [Neurontin] 1 tab PO TID 06/29/17 01/12/20 Unknown Protonix TAB 40 mg PO QAM 06/30/17 01/12/20 Unknown SEROquel 300 mg PO QHS 06/30/17 01/12/20 Unknown Xanax TAB 2 mg PO BID 06/30/17 01/12/20 Unknown traMADol 50 mg PO QID PRN 06/30/17 01/12/20 Unknown Previous Rx's Medication Instructions Recorded Last Taken Type Ibuprofen [Motrin] 800 mg PO Q8HR PRN #12 tablet 07/20/19 Unknown Rx HYDROcodone/APAP 7.5-325 [[place] 1 each PO Q6HR PRN #15 tablet 02/10/20 Unknown R x 7.5-325 mg TAB] Ondansetron [Zofran Odt] 4 mg PO Q8HR PRN #20 tab.rapdis 02/10/20 Unknown Rx Polyethylene Glycol 3350 [Miralax] 17 gm PO DAILY PRN #10 day 02/10/20 Unknown Rx Allergies Allergy/AdvReac Type Severity Reaction Status Date / Time aspirin Allergy Unknown Verified 01/12/20 18:30 ED Review of Systems ROS: Stated complaint: ABD PAIN Other details as noted in HPI Comment: All other systems reviewed and negative ED Past Medical Hx - Past Medical History Previous Medical History?: Yes Hx Hypertension: Yes Hx Congestive Heart Failure: No Hx Diabetes: No Hx Seizures: Yes (one time seizure not on seizure meds) Hx Psychiatric Treatment: Yes (bipolar) Hx Asthma: No Hx COPD: No Hx HIV: No Additional medical history: pancreatitis - Surgical History Past Surgical History?: Yes Hx Cholecystectomy: Yes - Social History Smoking Status: Never Smoker Substance Use Type: None - Medications Home Medications: Home Medications Medication Instructions Recorded Confirmed Last Taken Type Gabapentin [Neurontin] 1 tab PO TID 06/29/17 01/12/20 Unknown History Protonix TAB 40 mg PO QAM 06/30/17 01/12/20 Unknown History SEROquel 300 mg PO QHS 06/30/17 01/12/20 Unknown History Xanax TAB 2 mg PO BID 06/30/17 01/12/20 Unknown History traMADol 50 mg PO QID PRN 06/30/17 01/12/20 Unknown History Ibuprofen [Motrin] 800 mg PO Q8HR PRN #12 tablet 07/20/19 01/12/20 Unknown Rx HYDROcodone/APAP 7.5-325 [[place] 1 each PO Q6HR PRN #15 tablet 02/10/20 Unknown Rx 7.5-325 mg TAB] Ondansetron [Zofran Odt] 4 mg PO Q8HR PRN #20 tab.rapdis 02/10/20 Unknown Rx Polyethylene Glycol 3350 [Miralax] 17 gm PO DAILY PRN #10 day 02/10/20 Unknown Rx ED Physical Exam - General Limitations: No Limitations - Other Other exam information: General: No acute distress Head: Atraumatic Eyes: normal appearance ENT: Moist mucous membranes Neck: Normal appearance, no midline tenderness Chest: Clear to auscultation bilaterally CV: Regular rate and rhythm Abdomen: Soft, normal bowel sounds, epigastric tenderness, nondistended, no rebound or guarding Back: Normal inspection Extremity: Normal inspection, full range of motion Neuro: Alert O x 3, no facial asymmetry, speech clear, no gross motor sensory deficit Psych: Appropriate behavior Skin: No rash ED Course Vital Signs 02/09/20 15:46 Temperature 97.8 F Pulse Rate 84 Respiratory 20 Rate Blood Pressure 106/57 O2 Sat by Pulse 97 Oximetry - Consultations Consultation #1: 02/10/20 00:38 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 ED Medical Decision Making - Lab Data Result diagrams: 02/09/20 15:54 02/09/20 15:54 Lab Results 02/09/20 02/09/20 02/09/20 Range/Units 15:54 15:54 15:54 WBC 5.6 (4.5-11.0) K/mm3 RBC 4.31 (3.65-5.03) M/mm3 Hgb 10.8 L (11.8-15.2) gm/dl Hct 32.5 L (35.5-45.6) % MCV 76 L (84-94) fl MCH 25 L (28-32) pg MCHC 33 (32-34) % RDW 18.2 H (13.2-15.2) % Plt Count 151 (140-440) K/mm3 Lymph % (Auto) 23.8 (13.4-35.0) % [place] % (Auto) 9.6 H (0.0-7.3) % Eos % (Auto) 1.9 (0.0-4.3) % Baso % (Auto) 0.3 (0.0-1.8) % Lymph # (Auto) 1.3 (1.2-5.4) K/mm3 [place] # (Auto) 0.5 (0.0-0.8) K/mm3 Eos # (Auto) 0.1 (0.0-0.4) K/mm3 Baso # (Auto) 0.0 (0.0-0.1) K/mm3 Seg Neutrophils % 64.4 (40.0-70.0) % Seg Neutrophils # 3.6 (1.8-7.7) K/mm3 Sodium 139 (137-145) mmol/L Potassium 3.6 (3.6-5.0) mmol/L Chloride 97.0 L (98-107) mmol/L Carbon Dioxide 29 (22-30) mmol/L Anion Gap 17 mmol/L BUN 19 (9-20) mg/dL Creatinine 1.0 (0.8-1.3) mg/dL Estimated GFR > 60 ml/min BUN/Creatinine Ratio 19 % Glucose 184 H (75-100) mg/dL Calcium 9.2 (8.4-10.2) mg/dL Total Bilirubin 0.20 (0.1-1.2) mg/dL AST 37 (5-40) units/L ALT 68 H (7-56) units/L Alkaline Phosphatase 285 H (35-129) units/L Total Protein 6.9 (6.3-8.2) g/dL Albumin 4.2 (3.9-5) g/dL Albumin/Globulin Ratio 1.6 % Lipase 17 (13-60) units/L Urine Color (Yellow) Urine Turbidity (Clear) Urine pH (5.0-7.0) Ur Specific [place] (1.003-1.030) Urine Protein (Negative) mg/dL Urine Glucose (UA) (Negative) mg/dL Urine Ketones (Negative) mg/dL Urine Blood (Negative) Urine Nitrite (Negative) Urine Bilirubin (Negative) Urine Urobilinogen (<2.0) mg/dL Ur Leukocyte Esterase (Negative) Urine WBC (Auto) (0.0-6.0) /HPF Urine RBC (Auto) (0.0-6.0) /HPF Urine Mucus /HPF 02/08/ Range/Units 23:03 WBC (4.5-11.0) K/mm3 RBC (3.65-5.03) M/mm3 Hgb (11.8-15.2) gm/dl Hct (35.5-45.6) % MCV (84-94) fl MCH (28-32) pg MCHC (32-34) % RDW (13.2-15.2) % Plt Count (140-440) K/mm3 Lymph % (Auto) (13.4-35.0) % [place] % (Auto) (0.0-7.3) % Eos % (Auto) (0.0-4.3) % Baso % (Auto) (0.0-1.8) % Lymph # (Auto) (1.2-5.4) K/mm3 [place] # (Auto) (0.0-0.8) K/mm3 Eos # (Auto) (0.0-0.4) K/mm3 Baso # (Auto) (0.0-0.1) K/mm3 Seg Neutrophils % (40.0-70.0) % Seg Neutrophils # (1.8-7.7) K/mm3 Sodium (137-145) mmol/L Potassium (3.6-5.0) mmol/L Chloride (98-107) mmol/L Carbon Dioxide (22-30) mmol/L Anion Gap mmol/L BUN (9-20) mg/dL Creatinine (0.8-1.3) mg/dL Estimated GFR ml/min BUN/Creatinine Ratio % Glucose (75-100) mg/dL Calcium (8.4-10.2) mg/dL Total Bilirubin (0.1-1.2) mg/dL AST (5-40) units/L ALT (7-56) units/L Alkaline Phosphatase (35-129) units/L Total Protein (6.3-8.2) g/dL Albumin (3.9-5) g/dL Albumin/Globulin Ratio % Lipase (13-60) units/L Urine Color Yellow (Yellow) Urine Turbidity Clear (Clear) Urine pH 6.0 (5.0-7.0) Ur Specific [place] 1.022 (1.003-1.030) Urine Protein <15 mg/dl (Negative) mg/dL Urine Glucose (UA) >=500 (Negative) mg/dL Urine Ketones Neg (Negative) mg/dL Urine Blood Neg (Negative) Urine Nitrite Neg (Negative) Urine Bilirubin Neg (Negative) Urine Urobilinogen < 2.0 (<2.0) mg/dL Ur Leukocyte Esterase Neg (Negative) Urine WBC (Auto) 1.0 (0.0-6.0) /HPF Urine RBC (Auto) 3.0 (0.0-6.0) /HPF Urine Mucus Few /HPF - Radiology Data Radiology results: report reviewed CT abdomen pelvis w con INDICATION: Pt has epigastric pain, hx of Pancreatitis SMA occlusion. TECHNIQUE: All CT scans at this location are performed using the following dose modulation technique: Automated exposure control. Helical slices were obtained through the abdomen and pelvis. 100 cc of Omnipaque 300 is administered. COMPARISON: CT scan dated 01/12/2020 FINDINGS: Abdomen: There is a calcified granuloma in the left lung base. The lung bases are otherwise clear. There is mild intra and extrahepatic biliary dilatation which appears similar to the previous study. The spleen, adrenal glands, and kidneys are unchanged when compared to the prior study. There is chronic appearing scarring noted in the region of the pancreas. There is retraction of the mesentery. There is a 3.1 cm fluid collection in this location this measured 2.3 cm previously. 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 There is some mild stranding in the mesenteric fat similar in appearance to the previous study. This appears to be more centered around the SMV and the pancreas. There is atherosclerotic disease in the aorta and iliac arteries. There is no bowel obstruction. There is no free air. Pelvis: There is no obstruction or inflammation. There are no abnormal fluid collections there is no adenopathy. On review of bone windows, no acute osseous abnormalities are seen. IMPRESSION: 1. There is interval increase in size and the cystic structure involving the pancreas. This measures 3.1 cm currently and measured 2.3 cm previously. There is no other significant change since been compared to 01/12/2020 There is evidence of chronic pancreatitis. Scarring and retraction in the mesentery. There is chronic occlusion of the SMV with collateral formation. There is mild biliary dilatation which appears unchanged. - Medical Decision Making Patient presents to the hospital planing of pain due to typical pancreatitis type of pain without nausea or vomiting. In addition to chronic pancreatitis patient has a chronic pancreatic cyst which shows mild increase in size today and he has chronic SMA occlusion with recent ED vascular consultation with recommendation for follow-up with a tertiary care center as an outpatient. Patient's pain improved after Dilaudid and further improved with GI cocktail as per his request. He did receive Zofran and IV fluids in the ED. Labs did not reveal any acute abnormality with exception of mild LFT elevation. Patient also complaining of constipation symptoms and frequent passes of stool which can also be contributing to his pain. Reason for narcotics will worsen his constipation symptoms. Patient be discharged with pain medications, nausea medication, laxative and will recommend continued outpatient follow-up Critical Care Time: No Critical care attestation.: If time is entered above; I have spent that time in minutes in the direct care of this critically ill patient, excluding procedure time. ED Disposition Clinical Impression: Chronic pancreatitis, Occlusion of superior mesenteric artery, Pancreatic cyst, Abdominal pain Disposition: DC-01 TO HOME OR SELFCARE Is pt being admited?: No Does the pt Need Aspirin: No Condition: Stable Instructions: Pancreatitis (ED), Acute Abdominal Pain (ED), Constipation (ED) Additional Instructions: Take the medication as prescribed. Follow-up with your doctor or doctor/clinic provided. Return if symptoms worsen as indicated by your discharge instructions. Prescriptions: Polyethylene Glycol 3350 [Miralax] 17 gm PO DAILY PRN #10 day PRN Reason: Constipation HYDROcodone/APAP 7.5-325 [[place] 7.5-325 mg TAB] 1 each PO Q6HR PRN #15 tablet PRN Reason: Pain Ondansetron [Zofran Odt] 4 mg PO Q8HR PRN #20 tab.rapdis PRN Reason: Nausea And Vomiting Referrals: PRIMARY CARE, [Primary Care Provider] - 3-5 Days RAH RUSS MD [Staff Physician] - 3-5 Days (general surgeon ) [facility] [Provider Group] - 3-5 Days (primary care clinic ) Forms: Work/School Release Form(ED)
[2020-02-09 23:30] LABS: Bilirubin,Urine NEG (Negative); Blood,Urine NEG (Negative); Color,Urine Yellow (Yellow); Mucus,Urine FEW /HPF; Protein,Urine <15 mg/dL mg/dL (Negative); Urobilinogen,Urine < 2.0 mg/dL (<2.0)
--- NOTE | 2020-02-10 00:07 | Cat Scan Report ---
CT abdomen pelvis w con INDICATION: Pt has epigastric pain, hx of Pancreatitis SMA occlusion. TECHNIQUE: All CT scans at this location are performed using the following dose modulation technique: Automated exposure control. Helical slices were obtained through the abdomen and pelvis. 100 cc of Omnipaque 30 0 is administered. COMPARISON: CT scan dated 01/12/2020 FINDINGS: Abdomen: There is a calcified granuloma in the left lung base. The lung bases are otherwise clear. Th ere is mild intra and extrahepatic biliary dilatation which appears similar to the previous study. Th e spleen, adrenal glands, and kidneys are unchanged when compared to the prior study. There is chroni c appearing scarring noted in the region of the pancreas. There is retraction of the mesentery. There is a 3.1 cm fluid collection in this location this measured 2.3 cm previously. 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 There is some mild stranding in the mesenteric fat similar in appearance to the previous study. This appears to be more centered around the SMV and the pancreas. There is atherosclerotic disease in the aorta and iliac arteries. There is no bowel obstruction. Ther e is no free air. Pelvis: There is no obstruction or inflammation. There are no abnormal fluid collections there is no adenopathy. On review of bone windows, no acute osseous abnormalities are seen. IMPRESSION: 1. There is interval increase in size and the cystic structure involving the pancreas. This measures 3.1 cm currently and measured 2.3 cm previously. There is no other significant change since been comp ared to 01/12/2020 There is evidence of chronic pancreatitis. Scarring and retraction in the mesentery. There is chronic occlusion of the SMV with collateral formation. There is mild biliary dilatation which appears unchanged. Signer Name: Tony Srivastava MD Signed: 02/10/2020 12:03 AM Workstation Name: [id number]
[2020-02-10] MEDS ORDERED: ALUM-MAG HYDROXIDE-SIMETHICONE 200-200-20MG/5ML ORAL LIQD 30 ML PO ONE (00:40)
[2020-02-10] MEDS ORDERED: LIDOCAINE VISCOUS 2% 15 ML ORAL LIQD PO ONE (00:40)
[2020-02-10] MEDS ORDERED: HYDROmorphone 1 MG/1 ML INJ IV ONE (01:53)
== END 2020-02-10 02:15 | disposition home or self-care (01) ==
LOC: ED 15:40
DX: K55.069 Acute infarction of intestine, part and extent unspecified (principal); K86.2 Cyst of pancreas; K86.1 Other chronic pancreatitis; R10.13 Epigastric pain; I10 Essential (primary) hypertension; F31.9 Bipolar disorder, unspecified; Z90.49 Acquired absence of other specified parts of digestive tract; Z79.899 Other long term (current) drug therapy; Z88.6 Allergy status to analgesic agent
CPT/HCPCS: 36415; 74177; 80053; 81001; 83690; 85025; 96361; 96374; 96375; 96376; 99284; J1170; J2405; J7030; Q9967